=== PATIENT | female | born 1975 | race Caucasian/White ===

== ENCOUNTER 2017-11-25 01:40 | Emergency (ER) | END 2017-11-25 07:27 | disposition home or self-care (01) ==

== ENCOUNTER 2019-02-21 09:33 | Emergency (ER) | payer MEDICAID ==
[~2019-02-21] VITALS: Wt 79.0 kg
[~2019-02-21 09:33] MED LIST: ACET325T33 PO; CEPH-443 PO; RANI150T35 PO
[2019-02-21 09:35] VITALS: BP 117/65; PULSE 65; RESP 18
== END 2019-02-21 11:37 | disposition home or self-care (01) ==
LOC: FTE 09:33
DX: N39.0 Urinary tract infection, site not specified (principal); R10.2 Pelvic and perineal pain
CPT/HCPCS: 81003; 81025; Z7502; 99283